=== PATIENT | female | born 1975 | race Caucasian/White ===

== ENCOUNTER 2024-05-03 15:35 | Observation (INO) ==
--- NOTE | 2024-05-03 16:04 | Emergency Department Note ---
HPI - General Adult General Chief complaint: Stroke Stated complaint: MEMORY LOSS, RT SIDE HEAD PAIN Time Seen by Provider: 05/03/24 15:50 Source: patient and EMS Mode of arrival: ambulance Limitations: no limitations History of Present Illness HPI narrative: This is a 49 year old female patient that presents to the ER with c/o per patient she was at work felt like she was going to pass out and fall so she sat down on the ground. Per family at bedside patient was having difficulty remembering her husbands name for a few seconds. Patient states she did have a right posterior headache prior to the feeling she was going to pass out but now has resolved but states that same area feels funny now. Patient denies any chest pain, SOB, back pain,abdomimnal pain, numbness, tingling, weakness, N/V or speech difficulties Onset (ago): minute(s) (30) Associated symptoms: Reports denies other symptoms, headaches and syncope (near) Treatments prior to arrival: Reports none Related Data Allergies Allergy/AdvReac Type Severity Reaction Status Date / Time No Known Drug Allergies Allergy Verified 05/03/24 16:27 Review of Systems Status of ROS 10 or more systems reviewed and unremark able except as noted in history and below Constitutional Denies: fever, chills, change in weight, fatigue, malaise or night sweats Eyes Denies: change in vision, blurry vision, blind spots or light sensitivity Ears, nose, mouth, and throat Denies: throat pain, neck pain, throat swelling, difficulty swallowing, hoarseness or mouth pain Cardiovascular Denies: chest pain, palpitations or edema Respiratory Denies: shortness of breath, cough, wheezing, stridor, pain on inspiration or change in phlegm color Gastrointestinal Denies: abdominal pain, nausea, vomiting, coffee grounds in vomit, heartburn or diarrhea Genitourinary Denies: painful urination, urinary frequency, urinary urgency, urinary incontinence, blood in urine, difficulty voiding or decreased urine ouput Musculoskeletal Denies: back pain, neck pain, extremity pain, extremity swelling, joint pain, limited range of motion or joint swelling Integumentary/Breast Denies: rash, itching, redness, skin pain, skin tenderness, skin swelling or sores Neurological Reports: headache and confusion; Denies: numbness in extremities, weakness in extremities, lack of coordination, dizziness, vertigo, behavioral changes, slurred speech or difficulty communicating thoughts Psychiatric Denies: anxiety, mood swings, panic attacks, change in sleep pattern, hopelessness, loss of interest, irritability or paranoia Endocrine Denies: excessive urination, excessive thirst, fatigue, cold intolerance, excessive sweating or flushing Hematologic/Lymphatic Denies: easy bruising, easy bleeding or enlarged lymph nodes Allergic/Immunologic Denies: hives, throat swelling or tongue swelling PFSH PFS Medical History (Updated 05/03/24 @ 16:31 by Sagrario Friend RN) Diabetes Hyperlipidemia Social History Smoking status: never smoker Within the past year, how often did you have a drink containing alcohol: never Within the past year, how often did you have six or more drinks on one occasion: never Score interpretation: A score less than 3 is consistent with normal alcohol consumption. Non-prescribed substance use: denies use Problems where you live: no known problems In the past 12 months, utilities in danger of being shut off: no In past 12 months, lack of transportation kept you from medical appts, meetings, work, or getting things needed for daily living: No How hard is it for you to pay for the very basics like food, housing, medical care, and heating: not applicable Past 12 mos, fear food will run out before able to buy more: never true In past 12 months, food didn't last until money to buy more: never true Are you following a diet prescribed by a doctor: No Are you following a special diet: No Do you want help finding or keeping work or a job: I do not need or want help Known occupational exposures/hazards: No Highest level of school completed/degree received: decline to answer Do you want help with school or training: No How many days of moderate to strenuous exercise, like a brisk walk, did you do in the last 7 days: decline to answer Caffeine: No How often does anyone, including family, friends and others, physically hurt you : decline to answer How often does anyone, including family, friends and others, insult or talk down to you: decline to answer How often does anyone, including family, friends and others, threaten you with harm: decline to answer How often does anyone, including family, friends and others, scream or curse at you: decline to answer Firearms in home: declined to answer Do you need help with ADLs: I don't need any help Due to a physical, mental, or emotional condition, do you have difficulty doing errands alone such as visiting a doctor's office or shopping: No Little interest or pleasure in doing things: not at all Feeling down, depressed, or hopeless: not at all Feel stressed/tense/nervous/anxious/difficulty sleeping: not at all Due to disability, difficulty making decisions: No Do you think of yourself as: straight/heterosexual Gender Identity: female service: No Exam Constitutional: normal general appearance and no apparent distress Vital Signs - 24 hr 05/03/24 15:35 Temperature 98.2 F Pulse Rate 85 Respiratory Rate 16 Blood Pressure 122/76 Pulse Oximetry 96 Oxygen Delivery Me thod Room Air HENMT: normocephalic, head/scalp atraumatic, hearing grossly normal bilaterally, external ears normal, nasal mucous membranes normal, external nose normal, oral mucous membranes normal, oropharynx normal and dentition normal Eyes: PERRL, EOMs intact bilaterally, conjunctivae normal and no scleral icterus Neck/C-Spine: visual inspection normal and trachea midline Lymph: no lymphadenopathy noted Chest: inspection of chest normal Respiratory: breath sounds equal bilaterally, normal respiratory effort, clear to auscultation bilaterally, no wheezes, no rales, no retractions, no use of accessory muscles and chest percussion normal Cardiovascular: normal heart rate noted, regular rhythm noted, no gallop, no rub, no murmur, no JVD, no clicks, peripheral pulses 2+ throughout and no additional abnormal heart sounds Gastrointestinal: abdomen normal to inspection, abdomen soft to palpation, nontender to palpation, nontender to percussion, nondistended, normoactive bowel sounds, no hepatosplenomegaly, no masses, no pulsatile mass, no ascites and no hernia Genitourinary: no CVA tenderness Back/Pelvis: spine normal to inspection Extremities: normal to inspection, normal to palpation, no tenderness, full ROM, no joint enlargement and no deformity 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 Patient A&Ox3 still remains neurologically intact Vital Signs Vital signs: Vital Signs Temperature 98.2 F 05/03/24 15:35 Pulse Rate 85 05/03/24 15:35 Respiratory Rate 16 05/03/24 15:35 Blood Pressure 122/76 05/03/24 15:35 Pulse Oximetry 96 05/03/24 15:35 Oxygen Delivery Method Room Air 05/03/24 15:35 Temperature 98.2 F 05/03/24 15:35 Pulse Rate 85 05/03/24 15:35 Respiratory Rate 16 05/03/24 15:35 Blood Pressure 122/76 05/03/24 15:35 Pulse Oximetry 96 05/03/24 15:35 Oxygen Delivery Method Room Air 05/03/24 15:35 Medical Decision Making Differential Diagnosis Differential Diagnosis: viral illness, migraine Medical Records Medical records reviewed: Yes I reviewed the patient's medical records Lab Data Lab results reviewed: Yes I reviewed the patient's lab results Labs: Lab Results 05/03/24 Range/Units 16:10 WBC 9.4 H (4.3-9.3) K/uL RBC 4.4 (4.00-5.50) M/uL Hgb 13.4 (12.5-15.8) gm/dL Hct 38.7 (35.9-46.7) % MCV 88.3 (81.0-93.7) fl MCH 30.6 (27.6-32.2) pg MCHC 34.7 (33.1-35.3) g/dl RDW 13.3 (11.4-14.2) % Plt Count 165 (152-353) K/uL MPV 10.1 (6.9-10.8) fl Gran % 59.4 (47.8-71.3) % Lymph % (Auto) 31.0 (20.0-43.0) % Sevier % (Auto) 7.1 (3.6-9.8) % Eos % (Auto) 1.8 (0.4-2.8) % Baso % (Auto) 0.7 (0.1-0.85) Lymph # (Auto) 2.9 (1.1-3.1) Sevier # (Auto) 0.7 L (1.1-3.1) Eos # (Auto) 0.2 (0.0-0.2) Baso # (Auto) 0.1 (0.0-0.1) Absolute Gran (auto) 5.6 (2.3-6.0) Sodium 141 (136-145) mmol/L Potassium 3.6 (3.6-5.2) mmol/L Chloride 105.0 (98-107) mmol/L Carbon Dioxide 27 (21-32) mmol/L Anion Gap 9.0 (4-14) mEq/L BUN 14 (7-18) mg/dL Creatinine 0.7 (0.6-1.3) mg/dL Estimated GFR 106.6 (>59.9) Glucose 135 H (70-110) mg/dL Calcium 8.9 (8.5-10.1) mg/dL Total Bilirubin 0.39 (0.0-1.0) mg/dL AST 8 L (15-37) U/L ALT 15 L (30-65) U/L Alkaline Phosphatase 83 (50-136) U/L Troponin I High Sens <4.00 L (4.0-60.4) ng/L Total Protein 7.4 (6.4-8.2) g/dL Albumin 3.6 (3.4-5.0) g/dL Imaging Data CT scan - head: Attestation: I have reviewed the pertinent imaging results. ECG Data Attestation: I have reviewed the pertinent ECG results. Discharge Plan Discharge Patient Disposition: Admitted As Observation Condition: Stable Chief Complaint: Stroke Clinical Impression: Near syncope, Headache Print Language: Georgian Referrals: Johnie Park PA [Primary Care Provider] - Time of Disposition: 17:01
[2024-05-03 16:19] LABS: Basophils #(Absolute) Auto 0.1 (0.0-0.1); Basophils%(Percent) Auto 0.7 (0.1-0.85); Eosinophils#(Absolute)Auto 0.2 (0.0-0.2); Eosinophils%(Percent) Auto 1.8 % (0.4-2.8); Granulocytes % - Auto 59.4 % (47.8-71.3); Granulocytes#(Absolute)- Auto 5.6 (2.3-6.0); Hematocrit 38.7 % (35.9-46.7); Mean Corpuscular Volume 88.3 fl (81.0-93.7); Monocytes #(Absolute)- Auto 0.7 (1.1-3.1); Monocytes %(Percent)- Auto 7.1 % (3.6-9.8); Platelet Count 165 K/uL (152-353); White Blood Count 9.4 K/uL (4.3-9.3)
[2024-05-03 16:24] LABS: Carbon Dioxide 27 mmol/L (21-32); Glucose 135 mg/dL (70-110); Potassium 3.6 mmol/L (3.6-5.2); Sodium 141 mmol/L (136-145)
[2024-05-04] MEDS: ACETAMINOPHEN 325 MG TABLET PO PRN (04:55)
[2024-05-04 05:12] LABS: Basophils #(Absolute) Auto 0.1 (0.0-0.1); Basophils%(Percent) Auto 0.6 (0.1-0.85); Eosinophils#(Absolute)Auto 0.2 (0.0-0.2); Eosinophils%(Percent) Auto 1.8 % (0.4-2.8); Granulocytes#(Absolute)- Auto 5.4 (2.3-6.0); Hematocrit 36.7 % (35.9-46.7); Mean Corpuscular Volume 87.9 fl (81.0-93.7); Monocytes #(Absolute)- Auto 0.5 (1.1-3.1); Platelet Count 158 K/uL (152-353); White Blood Count 9.1 K/uL (4.3-9.3)
[2024-05-04 06:09] LABS: Potassium 3.5 mmol/L (3.6-5.2)
[2024-05-04 07:56] VITALS: BP 115/76; PULSE 85; RESP 18; TEMP 98.2
[2024-05-04 09:00] LABS: Urine Appearance CLEAR (CLEAR); Urine Blood NEGATIVE (NEG - TRACE); Urine Color YELLOW (STRAW/YELL.); Urine Urobilinogen Normal (NORMAL)
[2024-05-04 09:12] LABS: Urine Amorphous Sediment Negative (Negative); Urine Yeast Negative (Negative)
[2024-05-04 09:25] LABS: Amphetamine Screen Urine NEG. (NEGATIVE); Cannabinoid Screen Urine NEG. (NEGATIVE); Cocaine Screen Urine NEG. (NEGATIVE); Methadone Screen Urine NEG. (NEGATIVE); Opiate Screen Urine NEG. (NEGATIVE)
[2024-05-04] MEDS ORDERED: 0.9 % SODIUM CHLORIDE 500 ML IV ONE (10:17)
[2024-05-04] MEDS: 0.9 % SODIUM CHLORIDE 500 ML IV SCH (10:30)
--- NOTE | 2024-05-04 12:19 | Short Stay Summary ---
H&P: HPI History of Present Illness Chief complaint: near syncope, headache Narrative: This is a 49 year old female patient that presents to the ER with c/o per patient she was at work felt like she was going to pass out and fall so she sat down on the ground. Per family at bedside patient was having difficulty remembering her husbands name for a few seconds. Patient states she did have a right posterior headache prior to the feeling she was going to pass out but now has resolved but states that same area feels funny now. Patient denies any chest pain, SOB, back pain, abdominal pain, numbness, tingling, weakness, N/V or speech difficulties. Admitted patient to med/surg for observation and treatment. Review of Systems Status of ROS 10 or more systems reviewed and unremark able except as noted in history and below Constitutional Denies: fever, chills, change in weight, fatigue, malaise or night sweats Eyes Denies: change in vision, blurry vision, blind spots or light sensitivity Ears, nose, mouth, and throat Denies: throat pain, neck pain, throat swelling, difficulty swallowing, hoarseness, mouth pain or vertigo Cardiovascular Denies: chest pain, palpitations, edema or shortness of breath with exertion Respiratory Denies: shortness of breath, cough, wheezing, stridor, pain on inspiration or change in phlegm color Gastrointestinal Denies: abdominal pain, nausea, vomiting, coffee grounds in vomit, heartburn, diarrhea or difficulty swallowing Genitourinary Denies: painful urination, urinary frequency, urinary urgency, urinary incontinence, blood in urine, difficulty voiding or decreased urine ouput Musculoskeletal Denies: back pain, neck pain, extremity pain, extremity swelling, joint pain, limited range of motion or joint swelling Integumentary/Breast Denies: rash, itching, redness, skin pain, skin tenderness, skin swelling or sores Neurological Reports: headache and confusion; Denies: numbness in extremities, weakness in extremities, lack of coordination, dizziness, vertigo, behavioral changes, slurred speech or difficulty communicating thoughts Psychiatric Denies: anxiety, mood swings, panic attacks, change in sleep pattern, hopelessness, loss of interest, irritability or paranoia Endocrine Denies: excessive urination, excessive thirst, fatigue, cold intolerance, excessive sweating or flushing Hematologic/Lymphatic Denies: easy bruising, easy bleeding or enlarged lymph nodes Allergic/Immunologic Denies: hives, throat swelling, tongue swelling or wheezing [facility] Medical History (Updated 05/04/24 @ 12:19 by Alesia Diaz DO) Diabetes Hyperlipidemia Social History Smoking status: never smoker Within the past year, how often did you have a drink containing alcohol: never Within the past year, how often did you have six or more drinks on one occasion: never Score interpretation: A score less than 3 is consistent with normal alcohol consumption. Non-prescribed substance use: denies use Problems where you live: no known problems In the past 12 months, utilities in danger of being shut off: no In past 12 months, lack of transportation kept you from medical appts, meetings, work, or getting things needed for daily living: No How hard is it for you to pay for the very basics like food, housing, medical care, and heating: not applicable Past 12 mos, fear food will run out before able to buy more: never true In past 12 months, food didn't last until money to buy more: never true Are you following a diet prescribed by a doctor: No Are you following a special diet: No Do you want help finding or keeping work or a job: I do not need or want help Known occupational exposures/hazards: No Highest level of school completed/degree received: high school Do you want help with school or training: No How many days of moderate to strenuous exercise, like a brisk walk, did you do in the last 7 days: decline to answer Caffeine: No How often does anyone, including family, friends and others, physically hurt you : decline to answer How often does anyone, including family, friends and others, insult or talk down to you: decline to answer How often does anyone, including family, friends and others, threaten you with harm: decline to answer How often does anyone, including family, friends and others, scream or curse at you: decline to answer Firearms in home: declined to answer Do you need help with ADLs: I don't need any help Due to a physical, mental, or emotional condition, do you have difficulty doing errands alone such as visiting a doctor's office or shopping: No Little interest or pleasure in doing things: not at all Feeling down, depressed, or hopeless: not at all Feel stressed/tense/nervous/anxious/difficulty sleeping: not at all Due to disability, difficulty making decisions: No Do you think of yourself as: straight/heterosexual Gender Identity: female service: No Meds Home Medications and Allergies Home Medications Medication Instructions Recorded Confirmed Type rosuvastatin 5 mg tablet 5 mg PO DAILY 05/03/24 05/03/24 History Allergies Allergy/AdvReac Type Severity Reaction Status Date / Time No Known Drug Allergies Allergy Verified 05/03/24 16:27 Exam Exam: Patient in noguera's position upon encounter for exam. Constitutional: normal general appearance, no apparent distress, abnormal body habitus (overweight), no limitations and alert Vital Signs - 24 hr 05/03/24 15:35 05/03/24 17:50 05/03/24 19:00 Temperature 98.2 F 98.2 F Pulse Rate 85 86 Pulse Rate [Right Brachial] Respiratory Rate 16 16 Blood Pressure 122/76 110/65 Blood Pressure [Ri ght Arm] Pulse Oximetry 96 96 Oxygen Delivery Mo thod Room Air Room Air Room Air 05/03/24 19:30 05/03/24 19:44 05/04/24 06:00 Temperature 98.2 F 97.9 F 98.1 F Pulse Rate 86 Pulse Rate [Right Brachial] 79 71 Respiratory Rate 16 20 20 Blood Pressure 110/65 Blood Pressure [Ri ght Arm] 119/71 103/62 Pulse Oximetry 96 99 [facility] 05/04/24 06:19 05/04/24 07:54 Temperature 98.1 F 98.2 F Pulse Rate Pulse Rate [Right Brachial] 82 85 Respiratory Rate 20 18 Blood Pressure Blood Pressure [Ri ght Arm] 105/71 115/76 Pulse Oximetry 96 96 [facility] Air HENMT: normocephalic, head/scalp atraumatic, hearing grossly normal bilaterally, external ears normal, nasal mucous membranes normal, external nose normal, oral mucous membranes normal, oropharynx normal and dentition normal Eyes: PERRL, EOMs intact bilaterally, conjunctivae normal and no scleral icterus Neck/C-Spine: visual inspection normal and trachea midline Lymph: no lymphadenopathy noted Chest: inspection of chest normal Respiratory: breath sounds equal bilaterally, normal respiratory effort, clear to auscultation bilaterally, no wheezes, no rales, no retractions, no use of accessory muscles and chest percussion normal Cardiovascular: normal heart rate noted, regular rhythm noted, no gallop, no rub, no murmur, no JVD, no clicks, peripheral pulses 2+ throughout and no additional abnormal heart sounds Gastrointestinal: abdomen normal to inspection, abdomen soft to palpation, nontender to palpation, nontender to percussion, nondistended, normoactive bowel sounds, no hepatosplenomegaly, no masses, no pulsatile mass, no ascites and no hernia Genitourinary: no CVA tenderness Back/Pelvis: spine normal to inspection Extremities: normal to inspection, normal to palpation, no tenderness, full ROM, no joint enlargement and no deformity Neurology: law reporter II-XII intact, no movement abnormality noted, no focal motor deficit noted, no sensory deficits noted, speech normal, coordination normal, no pronator drift noted, no fasciculations noted and GCS normal neurologically intact Psychiatry: mental status grossly normal, oriented x3, thought process normal, cooperative, affect normal, psychomotor activity normal and memory normal neurologically intact Skin: skin color normal Assessment and Plan Assessment and Plan (1) Syncope: Qualifiers: Syncope type: unspecified Qualified Code(s): R55 - Syncope and collapse Code(s): R55 - Syncope and collapse (2) Dehydration: Code(s): E86.0 - Dehydration (3) Orthostatic headache: Code(s): R51.0 - Headache with orthostatic component, not elsewhere classified (4) Orthostatic hypotension: Code(s): I95.1 - Orthostatic hypotension (5) Hypokalemia: Code(s): E87.6 - Hypokalemia (6) Hypoalbuminemia: Code(s): E88.09 - Other disorders of plasma-protein metabolism, not elsewhere classified Plan Sodium Chloride 500 mls @ 999 mls/hr IV ONCE Sodium Chloride 500 mls @ 967.742 mls/hr IV ONCE Acetaminophen 650 mg PO Q4H PRN Patient acute symptoms and problems resolved and ready to be discharged home. Results Labs Labs: CBC WBC 9.1 K/uL (4.3-9.3) 05/04/24 05:10 RBC 4.2 M/uL (4.00-5.50) 05/04/24 05:10 Hgb 13.0 gm/dL (12.5-15.8) 05/04/24 05:10 Hct 36.7 % (35.9-46.7) 05/04/24 05:10 MCV 87.9 fl (81.0-93.7) 05/04/24 05:10 MCH 31.0 pg (27.6-32.2) 05/04/24 05:10 MCHC 35.3 g/dl (33.1-35.3) 05/04/24 05:10 RDW 13.5 % (11.4-14.2) 05/04/24 05:10 Plt Count 158 K/uL (152-353) 05/04/24 05:10 MPV 10.5 fl (6.9-10.8) 05/04/24 05:10 Gran % 60.0 % (47.8-71.3) 05/04/24 05:10 Lymph % (Auto) 31.6 % (20.0-43.0) 05/04/24 05:10 Oliver % (Auto) 6.0 % (3.6-9.8) 05/04/24 05:10 Eos % (Auto) 1.8 % (0.4-2.8) 05/04/24 05:10 Baso % (Auto) 0.6 (0.1-0.85) 05/04/24 05:10 Lymph # (Auto) 2.9 (1.1-3.1) 05/04/24 05:10 Oliver # (Auto) 0.5 (1.1-3.1) L 05/04/24 05:10 Eos # (Auto) 0.2 (0.0-0.2) 05/04/24 05:10 Baso # (Auto) 0.1 (0.0-0.1) 05/04/24 05:10 Absolute Gran (auto) 5.4 (2.3-6.0) 05/04/24 05:10 BMP Sodium 141 mmol/L (136-145) 05/04/24 05:10 Potassium 3.5 mmol/L (3.6-5.2) L 05/04/24 05:10 Chloride 108.0 mmol/L (98-107) H 05/04/24 05:10 Carbon Dioxide 23 mmol/L (21-32) 05/04/24 05:10 Anion Gap 10.0 mEq/L (4-14) 05/04/24 05:10 BUN 14 mg/dL (7-18) 05/04/24 05:10 Creatinine 0.6 mg/dL (0.6-1.3) 05/04/24 05:10 Estimated GFR 110.7 (>59.9) 05/04/24 05:10 Glucose 141 mg/dL (70-110) H 05/04/24 05:10 Calcium 8.7 mg/dL (8.5-10.1) 05/04/24 05:10 Total Bilirubin 0.47 mg/dL (0.0-1.0) 05/04/24 05:10 AST 8 U/L (15-37) L 05/04/24 05:10 ALT 13 U/L (30-65) L 05/04/24 05:10 Alkaline Phosphatase 76 U/L (50-136) 05/04/24 05:10 Total Protein 6.6 g/dL (6.4-8.2) 05/04/24 05:10 Albumin 3.1 g/dL (3.4-5.0) L 05/04/24 05:10 Cardiac Enzymes Troponin I High Sens <4.00 ng/L (4.0-60.4) L 05/03/24 16:10 Liver Function Total Bilirubin 0.47 mg/dL (0.0-1.0) 05/04/24 05:10 AST 8 U/L (15-37) L 05/04/24 05:10 ALT 13 U/L (30-65) L 05/04/24 05:10 Alkaline Phosphatase 76 U/L (50-136) 05/04/24 05:10 Total Protein 6.6 g/dL (6.4-8.2) 05/04/24 05:10 Albumin 3.1 g/dL (3.4-5.0) L 05/04/24 05:10 Urine Urine Color Yellow (STRAW/YELL.) 05/04/24 07:54 Urine Appearance Clear (CLEAR) 05/04/24 07:54 Ur Specific Valentine 1.010 (1.001-1.035) 05/04/24 07:54 Urine Protein Negative (NEGATIVE) 05/04/24 07:54 Urine Glucose (UA) Normal (NORMAL) 05/04/24 07:54 Urine Ketones Negative (NEGATIVE) 05/04/24 07:54 Urine Occult Blood Negative (NEG - TRACE) 05/04/24 07:54 Urine Nitrite Positive (NEGATIVE) 05/04/24 07:54 Urine Bilirubin Negative (NEGATIVE) 05/04/24 07:54 Urine Urobilinogen Normal (NORMAL) 05/04/24 07:54 Ur Leukocyte Esterase Negative (NEGATIVE) 05/04/24 07:54 Imaging Imaging ordered: CT scan - head Radiologist's impression: CT HEAD/BRAIN WO CON Date of Service: 05/03/24 HISTORY: headache, memory loss, possible stroke; COMPARISON: None. TECHNIQUE: Contiguous noncontrast axial CT images of the brain. Images are reviewed in the axial imaging plane with reformatted sagittal and coronal images.The above CT scan was done with automated exposure control and the mA and kV was adjusted to obtain quality images according to patient size. FINDINGS: No evidence of acute intracranial hemorrhage, mass effect, or midline shift. Normal patricio-white matter differentiation. Ventricles normal size and shape. The calvarium appears intact. IMPRESSION: No acute intracranial process seen. XR CHEST 1V Date of Service: 05/03/24 HISTORY: painpain; CBN COMPARISON: None. FINDINGS: The trachea is midline. The cardiac silhouette is unremarkable. The lungs are clear without focal infiltrate or effusion. The bony thorax is unremarkable. IMPRESSION: No acute cardiopulmonary disease. DS: Providers Provider Date of admission: 05/03/24 17:10 Primary care physician: ASHLEY Diaz Admitting clinician: Rosa Isela Mcdonough Attending physician on admission: Alesia Diaz Attending physician on discharge: Alesia Diaz Discharging clinician: Alesia Diaz Anticipated date of discharge: 05/04/24 DS: Summary Hospital Course Hospital Course: This is a 49 year old female patient that presents to the ER with c/o per patient she was at work felt like she was going to pass out and fall so she sat down on the ground. Per family at bedside patient was having difficulty remembering her husbands name for a few seconds. Patient states she did have a right posterior headache prior to the feeling she was going to pass out but now has resolved but states that same area feels funny now. Patient denies any chest pain, SOB, back pain,abdomimnal pain, numbness, tingling, weakness, N/V or speech difficulties. Admitted patient to med/surg for observation and treatment. Patient responded well to treatment plan and had an uneventful hospital stay, yet beneficial. Acute symptoms and problems have resolved and returned to patient's baseline. Patient is ready for discharge home for self care with a follow up appoint with PCP in 5-7 days of discharge and recommendation for an outpatient MRI of the Brain due to Near Syncope and right sided Headache. Status at Discharge Functional status at discharge: independent ambulation Overall status at discharge: patient is back to baseline Time Spent with Patient Time attestation: Total time spent providing and/or coordinating discharge services: Time spent: greater than 30 minutes Discharge Plan Discharge Disposition: Home, Self-Care Condition: Stable Discharge Medications: Continued rosuvastatin 5 mg tablet 5 mg PO DAILY Patient Comments: TAKE 1 TABLET BY MOUTH ONCE DAILY IN THE EVENING Discontinued Ozempic 0.25 mg or 0.5 mg (2 mg/3 mL) pen injector 0.5 mg SUBCUT .weekly Patient Comments: INJECT 0.5 MG SUBCUTANEOUSLY ONCE A WEEK Discharge Orders: Discharge Order (Routine); Ordered 05/04/24 Ordered By: Alesia Diaz Activity: increase activity as tolerated Diet: advance to your usual diet Diet Detail: encourage oral fluids and improve protein in diet even if use protein drinks Interventions: Discharge Assessment Last Done: 05/04/24 13:24 MED/SURG & ICU Observation Charge Sheet Last Done: 05/04/24 13:25 Activity Restrictions/Additional Instructions: keep a BS journal to carry to Dr Park office follow up in the next week as scheduled today and no more ozempic at this time as it is contributing to poor protein and fluid intake and affecting the over all health at this time. F/U made with Aileen Park CORDWAINER on 05-09-24 @ [id number], pt called and informed of appt. Forms: Portal/Health Info Access Inst Follow-Ups: Johnie Park PA [Primary Care Provider] - Discharge Date/Time: 05/04/24 13:26
== END 2024-05-04 13:26 | disposition home or self-care (01) ==
LOC: ED 15:35 → MS 15:35
PROVIDERS: ADMIT Family Medicine; ATTEND Family Medicine